=== PATIENT | female | born 1935 | race Caucasian/White ===

== ENCOUNTER 2022-03-02 10:29 | Outpatient (CLI) | payer MEDICARE ==
[~2022-03-02 10:29] MED LIST: BARIUM SULFATE 700 MG TABLET PO ONE
== END 2022-03-02 23:59 | disposition home or self-care (01) ==
LOC: RAD 10:29
PROVIDERS: ATTEND Surgery
DX: K44.9 Diaphragmatic hernia without obstruction or gangrene (principal); K22.4 Dyskinesia of esophagus
CPT/HCPCS: 74220

== ENCOUNTER 2022-06-18 06:15 | Day surgery (SDC) | payer MEDICARE ==
[~2022-06-18] VITALS: Ht 167.6 cm; Wt 65.0 kg
[2022-06-18] VITALS (8 sets, daily range): BP systolic 92–167; BP diastolic 51–73
[2022-06-18] MEDS ORDERED: PANT40TA54 PO (06:48)
[2022-06-18] MEDS ORDERED: BETA1TAB20 PO (06:48)
[2022-06-18] MEDS ORDERED: HYDR-3968 PO (06:48)
[2022-06-18] MEDS ORDERED: CALCIUM PO (06:48)
[2022-06-18] MEDS ORDERED: MULT-1249 PO (06:48)
[2022-06-18] MEDS ORDERED: CHOLECALCIFEROL PO (06:48)
[2022-06-18] MEDS ORDERED: LEVO88TA7 PO (06:48)
[2022-06-18] MEDS ORDERED: ATEN50TA8 PO (06:48)
[2022-06-18] MEDS ORDERED: ZINC PO (06:48)
[2022-06-18] MEDS ORDERED: normal saline 1000ml 1,000 ML IV PRN (06:50)
[2022-06-18 07:23] LABS: BASOPHILS % (AUTO) 0.7 % (0-1); EOSINOPHILS # (AUTO) 0.2 X10'3 (0-0.9); EOSINOPHILS % (AUTO) 3.7 % (0-6); HEMATOCRIT 35.7 % (35.0-45.0); HEMOGLOBIN 11.6 g/dl (12.0-16.0); LYMPHOCYTES # (AUTO) 1.3 X10'3 (1.1-4.8); LYMPHOCYTES % (AUTO) 28.3 % (21-51); MEAN CORPUSCULAR HEMOGLOBIN 26.3 PG (27.0-31.0); MEAN CORPUSCULAR HGB CONC 32.5 g/dL (33.0-36.5); MEAN CORPUSCULAR VOLUME 80.9 FL (78-98); MEAN PLATELET VOLUME 8.1 FL (7.4-10.4); MONOCYTES # (AUTO) 0.5 X10'3 (0-0.9); MONOCYTES % (AUTO) 11.4 % (2-12); NEUTROPHILS # (AUTO) 2.6 X10'3 (1.8-7.7); NEUTROPHILS % (AUTO) 55.9 % (42-75); PLATELET COUNT 347 X10'3 (140-440); RED BLOOD COUNT 4.41 X10'6 (4.20-5.60); RED CELL DISTRIBUTION WIDTH 20.5 % (11.5-14.5); WHITE BLOOD COUNT 4.6 X10'3 (4.5-11.0)
[2022-06-18 07:30] LABS: APTT 29 SECONDS (22-32)
[2022-06-18] MEDS ORDERED: fentaNYL/PF 50MCG/1 ML 2ML syringe ONE ×2 (08:11→10:08)
[2022-06-18] MEDS ORDERED: diphenhydrAMINE 50 mg/ml inj ONE (08:11)
[2022-06-18] MEDS ORDERED: midazolam 1 mg/ML 2ml injection ONE ×2 (08:11→10:08)
[2022-06-18 08:48] LABS: ANISOCYTOSIS 3+; ELLIPTOCYTES FEW; MICROCYTOSIS 1+; PLATELET ESTIMATE NORMAL
[2022-06-18] MEDS ORDERED: clindamycin 600mg/D5W 50ml 50 ML IV ONE (08:50)
[2022-06-18] MEDS ORDERED: iohexol 300mg/ml 100ml inj. ONE (09:54)
== END 2022-06-18 14:00 | disposition home or self-care (01) ==
LOC: SSTAY O 06:15
PROVIDERS: ATTEND Radiology Vascular & Interventional Radiology
DX: M80.08XA Age-related osteoporosis with current pathological fracture, vertebra(e), initial encounter for fracture (principal); M54.6 Pain in thoracic spine; I12.9 Hypertensive chronic kidney disease with stage 1 through stage 4 chronic kidney disease, or unspecified chronic kidney disease; N18.9 Chronic kidney disease, unspecified; M85.80 Other specified disorders of bone density and structure, unspecified site; E03.9 Hypothyroidism, unspecified; Z79.899 Other long term (current) drug therapy; Z88.0 Allergy status to penicillin; Z88.8 Allergy status to other drugs, medicaments and biological substances
CPT/HCPCS: 22513; 22515; 36415; 85025; 85610; 85730; C1713; J1200; J2250; J3010; J3490; J7030; Q9967; 85008; 99152; 99153; A4620